=== PATIENT | female | born 1990 | race African-American/Black ===

== ENCOUNTER 2017-05-06 18:21 | Inpatient (IN) | payer MEDICARE, OTHER ==
--- NOTE | ~2017-05-06 | CO ---
Unit #: [id number] #: [id number] Patient: CIRO ISSA [id number] [facility] [address] [place] [address] [id number] MR#: [id number] NAME: CIRO ISSA. ROOM: P211 Age: 27 Sex: F Admission Date: 05/06/2017 : 1990 Attending Physician: Yossi Doll M.D. Primary Care Physician: Primary Care Physician No Consultation Date: 05/13/2017 CONSULTATION REPORT TICO Lange is a 27 year old originally admitted to [facility] on 05/06/2017 with increased aggression and homicidal ideation. At the time of admission, she reported history of bilateral PEs in January 2017. She was admitted on no anticoagulation medications. The patient said that she was followed at [facility]. Per [place] she had not been seen there since 2010, and she was on no current medications. The patient did not tell us at that time that she had been seen at the [facility] with PE. She has been admitted and was started on Xarelto. She tells me that she had been on Xarelto for about 60 days. She did not get the medication refilled and failed to follow up with her doctors. She has not been anticoagulated since March 2017. She denies any chest pain or shortness of breath, and there have been no recorded increased temperature. She had no swelling or pain in any of her limbs. OBJECTIVE GENERAL: Alert, obese. No apparent distress. VITAL SIGNS: Blood pressure 120/80, heart rate 72, respirations 16, and temperature 98.6. Weight: 245, height 5 feet 9 inches. CARDIOVASCULAR: Rate and rhythm regular. CHEST: Lungs clear. EXTREMITIES: No evidence of cyanosis, clubbing, or edema. ASSESSMENT History of bilateral PEs. The patient has been noncompliant with her anticoagulation therapy. PLAN Reinitiate Xarelto 20 mg 1 p.o. q. day, first dose now. She is given a prescription for #30 with 4 refills. She knows to follow up with her PCP. Dictated by... Eulalia Vargas P.A.-C. for Dilcia Brooks/virgen TD: 05/14/2017 12:38 JOB #: [id number] Unit #: [id number] #: [id number] Patient: CIRO ISSA CONSULTATION REPORT Page 1 of 1 X Eulalia Vargas CONSULTATION REPORT
--- NOTE | ~2017-05-06 | PA ---
Unit #: [id number] #: [id number] Patient: NAZARIO ISSA [id number] [facility] [address] [place] [address] [id number] MR#: [id number] NAME: NAZARIO ISSA. ROOM: [facility] Age: 27 Sex: F Admission Date: 05/06/2017 : 1990 Date of Assessment: 05/07/2017 Attending Physician: Yossi Doll M.D. Admitting Physician: Yossi Doll M.D. Primary Care Physician: Primary Care Physician No PSYCHIATRIC ASSESSMENT INFORMANT(S) Patient, reliable. [facility]. CHIEF COMPLAINT Noncompliance with medication. HISTORY OF PRESENT ILLNESS Nazario is a 27-year-old woman, with a history of schizoaffective disorder who reports that she has been off her medications with increasing irritability, and some psychosis with homicidal ideation. She had also been snorting cocaine as a method of "self medicating." She was readmitted for stabilization. PAST PSYCHIATRIC HISTORY The patient was previously a patient of Dr. Green and was admitted in December of this year. Please see his record for further details. FAMILY PSYCHIATRIC HISTORY None reported. SOCIAL HISTORY The patient is currently erratically housed but does have some supportive family. Please see previous dictations for details. PAST MEDICAL HISTORY Significant for obesity. MEDICATIONS None currently. ALLERGIES Benadryl. SUBSTANCE ABUSE HISTORY The patient has a history of dealing cocaine. MENTAL STATUS EXAM The patient presented as a mildly disheveled woman who appeared her stated age. She was cooperative with the examination. Her speech is spontaneous and easily understood. Her musculoskeletal examination was calm. Her mood was irritable with a congruent affect. She was alert and fully oriented and memory and concentration were [id number]. Thought processes Unit #: [id number] #: [id number] Patient: NAZARIO ISSA were goal-directed with no active psychosis. She did report psychosis prior to coming to the hospital and reported ongoing suicidal ideation with vague homicidal ideation. Insight and judgment was fair. Fund of knowledge and abstraction were fair. ASSETS The patient knows local resources and presents voluntarily for treatment. LIABILITIES Include, noncompliance with treatment and recent relapse. ADMITTING DIAGNOSES [place] I: Schizoaffective disorder, F25.0. Cocaine abuse. [place] II: No diagnosis. [place] III: History of obesity. [place] IV: [place] V: PSYCHIATRIC PLAN The patient was admitted and placed on psychosis precautions. Her psychiatric medications will be restarted. Physical examination and laboratory studies will be ordered and reviewed. TREATMENT GOALS Resolution of SI, resolution of HI, improvement in insight, and improvement in coping skills. DISCHARGE PLANNING Follow up with [place]. ESTIMATED LENGTH OF STAY Five days. Dictated by... Yossi Doll M.D. HERBERTH/mioz TD: 05/10/2017 12:04 JOB #: [id number] PSYCHIATRIC ASSESSMENT Page 1 of 1 X Yossi Doll MD X PSYCHIATRIC ASSESSMENT
--- NOTE | ~2017-05-06 | HP ---
Unit #: [id number] #: [id number] Patient: NAZARIO ISSA [id number] [place] [address] [id number] I MR#: [id number] NAME: NAZARIO ISSA. ROOM: P211 Age: 27 Sex: F Admission Date: 05/06/2017 : 1990 Attending Physician: Yossi Doll M.D. Admitting Physician: Yossi Doll M.D. Primary Care Physician: Primary Care Physician No HISTORY AND PHYSICAL HISTORY OF PRESENT ILLNESS Nazario is a 27-year-old female admitted to [address] [place] [address] on 05/06/2017 for irritability and homicidal ideation. She has been off of her medications for the past 3 weeks. PAST MEDICAL HISTORY 1. Obesity. 2. Hypertension. 3. Bilateral PE in January. PAST SURGICAL HISTORY None documented. ALLERGIES Benadryl. SOCIAL HISTORY Smokes 1/2 pack of cigarettes daily. Occasional alcohol use and occasional crack cocaine use. She is currently single and living with her mother. FAMILY HISTORY Noncontributory. REVIEW OF SYSTEMS CONSTITUTIONAL: No fever or chills. HEENT: Denies any sore throat, ear pain or runny nose. CARDIOVASCULAR: Denies chest pain, irregular heart rhythm or palpitations. CHEST: Denies shortness of breath or cough. No hemoptysis. GASTROINTESTINAL: Denies nausea, vomiting, diarrhea or chronic constipation. ENDOCRINE: Denies history of increased thirst or urination. No recent significant weight loss or gain. GENITOURINARY: Denies dysuria, frequency, or hematuria. SKIN: Denies any rashes. HEMATOLOGIC: Denies history of increased bleeding or bruising. MUSCULOSKELETAL: Denies any hot, swollen joints. No generalized muscle pain. NEUROLOGIC: Denies problems with vision or speech. No frequent, severe headaches. No numbness, tingling or weakness in any extremities. Denies loss of bladder or bowel control. CURRENT MEDICATIONS Unit #: [id number] #: [id number] Patient: NAZARIO ISSA None. PHYSICAL EXAMINATION GENERAL: Alert, oriented, in no acute distress. VITAL SIGNS: Blood pressure 144/96, heart rate 79, respirations 20, temperature 98.3. HEIGHT: 5 feet 9. WEIGHT: 245 pounds. SKIN: Warm and dry without rash or lesion. HEENT: Normocephalic. TMs not viewed. Oral and nasal passages clear. Conjunctivae clear. PERRLA. EOMs intact. NECK: Supple without lymphadenopathy or thyromegaly. HEART: Regular rate and rhythm without murmur. LUNGS: Clear. ABDOMEN: Soft, nontender, without masses or hepatosplenomegaly. : Not done. EXTREMITIES: No evidence of cyanosis, clubbing or edema. Moves all without focal deficit. NEUROLOGICAL: Grossly within normal limits. Cranial Nerves: II: Visual galdamez are intact. III, IV AND : Extraocular movements are intact. Pupils are equal, round and reactive to light. V: Facial sensation is grossly normal. VII: Facial movements and expression are normal. VIII: Auditory acuity grossly intact. IX, X: Uvula is midline. Phonation is normal. XI: Patient shrugs shoulders and turns head normally. XII: Tongue protrudes in the midline. Sensory and Motor Function: Sensory and motor sensation is grossly normal. Motor: moves all extremities well. Coordination: Gait is normal. Deep Tendon Reflexes: Intact. IMPRESSION 1. Psychiatric admission. 2. Obesity. 3. Hypertension. 4. Bilateral PE in January. RECOMMENDATIONS PSYCHIATRIC: Per psychiatrist. MEDICAL: No contraindications to participate in facility's activities. MEDICAL PROGNOSIS Good. MEDICAL CONDITION Stable. Dictated by... Manuel Metzger/juliet TD: 05/07/2017 15:39 JOB #: [id number] Unit #: [id number] #: [id number] Patient: NAZARIO ISSA HISTORY AND PHYSICAL Page 1 of 1 X HERO ZAMORA APRN HISTORY AND PHYSICAL
--- NOTE | ~2017-05-06 | DS ---
Unit #: [id number] #: [id number] Patient: CIRO BARRETT [id number] [facility] [address] [place] [address] [id number] I MR#: [id number] NAME: CIRO BARRETT. ROOM: [facility] Age: 27 Sex: F Admission Date: 05/06/2017 : 1990 Discharge Date: 05/14/2017 Attending Physician: Yossi Doll M.D. Primary Care Physician: Primary Care Physician No DISCHARGE SUMMARY REASON FOR ADMISSION Ms. Barrett is a 27-year-old woman with a history of schizoaffective disorder. She reports that she has been off her medications with increasing irritability, some psychosis, and using cocaine as a method of "self medicating." She was unable to contract for safety and admitted for stabilization. LABORATORY DATA Please see hospital chart. HOSPITAL COURSE The patient was admitted and placed on suicide precautions. Seroquel was restarted at a dose of 200 mg, later increased to 300 mg for improved effect. She was generally isolative from peers and staff, but her mood gradually became less irritable, less labile and she had reduction of homicidal and suicidal thoughts. She participated in discharge planning with her social media director, deciding to go to a long-term care facility in [place]. The patient has a history of bilateral pulmonary emboli in 01/2017 and after medical consultation was obtained, she was restarted on the anticoagulant, Xarelto, prior to discharge. On the date of discharge, the patient went to the nurse's station and requested discharge against medical advice, stating that she would "find her own way" to the facility in [place] and thor for safety. Despite the encouragement of staff and nursing, the patient declined to stay until her schedule discharge on Wednesday and was discharged AMA at her request. DISCHARGE DIAGNOSES AXIS I: Schizoaffective disorder, bipolar type; cocaine abuse. AXIS II: No diagnosis. AXIS III: History of obesity, history of pulmonary embolus. AXIS IV: AXIS V: DISCHARGE INSTRUCTIONS Instructed the patient to follow up with the [facility] program in [place] as recommended. DISCHARGE MEDICATIONS No prescriptions were provided due to the AMA nature of her discharge. CONDITION AT DISCHARGE Fair. Unit #: [id number] #: [id number] Patient: PAGE,LAMAIYA A PROGNOSIS Fair. DIET AND ACTIVITY Per primary care doctor. Dictated by... Dilcia Willett/braxton TD: 05/29/2017 01:39 JOB #: [id number] DISCHARGE SUMMARY Page 1 of 1 X Yossi Doll MD X DISCHARGE SUMMARY
--- NOTE | ~2017-05-06 | PN ---
Unit #: [id number] #: [id number] Patient: CIRO ISSA [id number] [facility] [address] [place] [address] [id number] I MR#: [id number] NAME: CIRO ISAS. ROOM: P211 Age: 27 Sex: F Admission Date: 05/06/2017 : 1990 Attending Physician: Yossi Doll M.D. Admitting Physician: Yossi Doll M.D. Primary Care Physician: Primary Care Physician Brianda JAMA PROGRESS NOTES DATE 05/08/2017 DISCUSSION Upon today's assessment, the patient was observed eating in the dining room. She reports that she was okay and asked when her physician would be returning, and I explained to her that he would be back Wednesday. General Appearance: She is casually dressed, mildly disheveled, with fair personal hygiene. She appeared oriented to person, place, time, date, and situation. Her mood was dysthymic with a congruent affect. Her speech was relevant and coherent with a soft tone and slow rate. Her thought processes and content were logical and goal-directed at this time. She denies suicidal or homicidal ideations and denied auditory or visual hallucinations with no overt symptoms of psychosis noted. Memory and intellectual functioning appear grossly intact. Judgment and insight appear fair at this time. She had no complaints with sleep and appetite, and denied suicidal or homicidal ideations. PLAN Continue current medications and monitor q. 15 minutes for safety. Dictated by... CHAPINCITO De Oliveira TD: 05/11/2017 10:45 JOB #: [id number] [facility] PROGRESS NOTES Page 1 of 1 X CHARLES DIALLO PROGRESS NOTE
--- NOTE | ~2017-05-06 | PN ---
Unit #: [id number] #: [id number] Patient: CIRO ISSA [id number] [place] [address] [id number] I MR#: [id number] NAME: CIRO ISSA. ROOM: P211 Age: 27 Sex: F Admission Date: 05/06/2017 : 1990 Attending Physician: Yossi Doll M.D. Admitting Physician: Yossi Doll M.D. Primary Care Physician: Primary Care Physician Brianda BRAVO NOTES DATE May 09, [address] Yossi Doll at [facility] DISCUSSION Upon today's assessment, the patient was found lying in her bed with complaints of a headache. She reports she is "okay" and asked for Brenda, her social science instructor. I informed her that the social workers were off during the weekend and that her social science instructor would be back Wednesday to speak with her at that time. The patient verbalized understanding. At this time her mood still appears dysthymic with a congruent affect, and she currently reports no suicidal or homicidal ideations and verbalizes no plan or intent. She denies auditory or visual hallucinations and no overt symptoms of psychosis was noted. Plan is to continue current medications and to encourage participation in groups and programming. Dictated by... CHAPINCITO De Oliveira TD: 05/11/2017 10:52 JOB #: [id number] [facility] BRAVO NOTES Page 1 of 1 X CHARLES DIALLO PROGRESS NOTE
[~2017-05-06 18:21] MED LIST: FLEXERIL10 MG PO; LORTAB 5/500 TA1 TA1 PO; NAPROXEN PO
[2017-05-10 16:29] LABS: ALBUMIN SERUM 3.8 g/dL (3.5-5.0); ALKALINE PHOSPHATASE 87 U/L (32-92); ALT (SGPT) 10 U/L (10-40); AST (SGOT) 17 U/L (10-42); BILIRUBIN,TOTAL <0.1 mg/dL (0.2-2.0); BLOOD UREA NITROGEN 13 mg/dL (9-23); CARBON DIOXIDE 26 mmol/L (22-31); CHLORIDE 102 mmol/L (100-111); GLOM FILT RATE Estimated 88.2 mL/min (>60); GLUCOSE FASTING 99 mg/dL (70-110); POTASSIUM 4.3 mmol/L (3.5-5.1); SODIUM 135 mmol/L (135-145)
[2017-05-10 16:40] LABS: BASOPHIL# 0.1 X10e3 (0-0.3); BASOPHIL% 0.9 % (0-2.5); EOSINOPHIL# 0.1 X10e3 (0-0.7); EOSINOPHIL% 1.7 % (0.0-7.0); HEMATOCRIT 42.1 % (35.0-45.0); HEMOGLOBIN 12.9 gm/dL (12.0-16.0); LYMPHOCYTE# 3.2 X10e3 (1.0-3.5); LYMPHOCYTE% 47.5 % (17.0-45.0); MEAN CELL VOLUME 85.6 FL (83-96); MEAN CORPUSCULAR HEMOGLOBIN 26.2 PG (28-34); MEAN CORPUSCULAR HGB CONC 30.6 g/dL (30-36); MEAN PLATELET VOLUME 10.1 FL (6.5-11.5); MONOCYTE# 0.6 X10e3 (0-1.0); MONOCYTE% 8.4 % (3.0-12.0); NEUTROPHIL# 2.8 X10e3 (1.5-7.1); NEUTROPHIL% 41.5 % (40-75); PLATELET COUNT 181 X10e3 (140-420); RED BLOOD COUNT 4.92 X10e (3.90-5.30); RED CELL DISTRIBUTION WIDTH 15.2 % (11.0-15.5); WHITE BLOOD COUNT 6.8 X10e3 (4.0-10.5)
[2017-05-10 17:24] LABS: DIFF IND NO
== END 2017-05-14 13:30 | disposition home or self-care (01) | DRG 885 ==
LOC: P1E 20:28 → P2S 23:24
PROVIDERS: Psychiatry & Neurology Psychiatry
DX: F25.9 Schizoaffective disorder, unspecified (principal); Z91.19 Patient's noncompliance with other medical treatment and regimen; F14.10 Cocaine abuse, uncomplicated; E66.9 Obesity, unspecified; F31.9 Bipolar disorder, unspecified; Z68.36 Body mass index [BMI] 36.0-36.9, adult
CPT/HCPCS: 80053; 84703; 85025

== ENCOUNTER 2017-05-14 16:14 | Inpatient (IN) | payer MEDICARE, OTHER ==
--- NOTE | ~2017-05-14 | PA ---
Unit #: [id number] #: [id number] Patient: [facility]RETT [id number] [facility] [address] [place] [address] [id number] I MR#: [id number] NAME: CIRO BARRETT. ROOM: [facility] Age: 27 Sex: F Admission Date: 05/14/2017 : 1990 Date of Assessment: 05/15/2017 Attending Physician: Lotus Baumann M.D. Admitting Physician: Lotus Baumann M.D. Primary Care Physician: Primary Care Physician No PSYCHIATRIC ASSESSMENT DATE OF SERVICE 05/15/2017. HISTORY OF PRESENT ILLNESS Ms. Barrett is a 27-year-old single disabled female, who was just discharged earlier in the day after she has been under the care of Dr. Doll; however, she turned around and came right back into the admission stating that she has been having suicidal thoughts and reports that she has been snorting unknown amount of cocaine on a daily basis for the last 3 months and that she has been off her medications; however, medications were restarted, and she reports that she has been experiencing increasing irritability and has been having homicidal ideations as well as suicidal ideations and then was seen to be very manipulative and not opening up, and was unable to identify any triggers or stressors or any intent or plan, but was refusing to contract for safety and Dr. Doll did not feel like he has anything else to offer and as such case was transferred to [place]. The patient once again on evaluation by me was seen to be very gamey and manipulative and not telling why she is suicidal and why she is back here within a day except that kept on saying that she needs some referal and she some places to be sent to work for. SUBSTANCE ABUSE HISTORY The patient reports history of cocaine abuse and reports that she has been snorting cocaine and cocaine has been her drug of choice. PAST PSYCHIATRIC HISTORY The patient has had a history of inpatient psychiatric hospitalization at [facility] and has been diagnosed and treated for mood disorder. Review of the medical records indicate that she currently has been on Seroquel. PAST MEDICAL HISTORY The patient's medical history is insignificant. ALLERGIES Benadryl. PERSONAL AND SOCIAL HISTORY A 27-year-old female, who reports that she lives at home with her mother and is disabled and has poor social support system. MENTAL STATUS EXAMINATION Young female, who was casually dressed with fair personal Unit #: [id number] #: [id number] Patient: CIRO BARRETT hygiene, appears to be in no acute distress or discomfort. She was awake and alert on interaction with intact orientation. Her mood was anxious and depressed with a congruent affect. Her speech was slow and restricted in content. Her thought processes were disorganized with some looseness of associations and suicidal ideations. Her insight and judgment remain significantly impaired. DIAGNOSTIC IMPRESSION Psychiatric: Bipolar disorder, most recent episode depressed, recurrent, moderate, without psychotic features and cocaine dependence, moderate. Medical: None. Stressors: Moderate psychosocial stressors. TREATMENT PLAN 1. The patient has presented with a history of mood disorder and substance abuse and has been decompensating and will need inpatient hospitalization for safety and stabilization. We will start her back on her home medications. We will adjust the medications and monitor response. 2. Supportive therapy was provided to the patient. 3. Safe, structured, and nourishing environment will be provided. ESTIMATED LENGTH OF STAY 5 to 7 days. ABILITY TO HELP SELF Limited. WILLINGNESS TO HELP SELF The patient appears to be willing to help self. STRENGTHS 1. Communicative. 2. Cooperative. PROBLEMS 1. Chronic dysphoric symptoms. 2. Poor social support system. DISCHARGE CRITERIA This will be contingent upon the patient's ability to show resolution of her depression and anxiety and her ability to stay safe to herself, particularly after discharge from the hospital. Dictated by... Dilcia Feng/braxton TD: 05/15/2017 20:15 JOB #: [id number] Unit #: [id number] #: [id number] Patient: CIRO BARRETT PSYCHIATRIC ASSESSMENT Page 1 of 1 X Lotus Baumann MD PSYCHIATRIC ASSESSMENT
--- NOTE | ~2017-05-14 | PN ---
Unit #: [id number] #: [id number] Patient: CIRO BARRETT [id number] [facility] [address] [place] [address] [id number] I MR#: [id number] NAME: CIRO BARRETT. ROOM: P257 Age: 27 Sex: F Admission Date: 05/14/2017 : 1990 Attending Physician: Lotus Baumann M.D. Admitting Physician: Lotus Baumann M.D. Primary Care Physician: Primary Care Physician Brianda BRAVO NOTES DATE OF SERVICE 05/10/2017 DISCUSSION Ms. Barrett was admitted over the weekend for dysphoria and cocaine use. She says that she is not sleeping much better right now and has a dysphoric and irritable mood. Her affect is congruent with her expressed mood. She is alert and fully oriented. Her memory and concentration are fair. Her thought processes are logical with no active psychosis. ASSESSMENT Bipolar disorder, cocaine abuse. PLAN We will continue with Seroquel and monitor for response. Dictated by... Dilcia Willett/robson TD: 05/15/2017 23:39 JOB #: [id number] [facility] PROGRESS NOTES Page 1 of 1 X Yossi Doll MD PROGRESS NOTE
--- NOTE | ~2017-05-14 | DS ---
Unit #: [id number] #: [id number] [facility]: [facility] [id number] [facility] [address] [place] [address] [id number] I MR#: [id number] NAME: CIRO BARRETT. ROOM: P257 Age: 27 Sex: F Admission Date: 05/14/2017 : 1990 Discharge Date: 05/17/2017 Attending Physician: Lotus Baumann M.D. DISCHARGE SUMMARY IDENTIFYING DATA Ms. Barrett is a 27-year-old single disabled -[place] female, who was just discharged earlier in the day after she has been under care of Dr. Doll, however, she returned on and came right back to the hospital stating having suicidal thoughts. DISCHARGE DIAGNOSES Psychiatric: Bipolar disorder, most recent episode depressed, recurrent, moderate, without psychotic features; cocaine dependence, moderate. Medical: None. Stressors: Moderate psychosocial stressors. HISTORY OF PRESENT ILLNESS Ms. Barrett is a 27-year-old single disabled female, who was just discharged earlier in the day after she has been under the care of Dr. Doll; however, she turned around and came right back into the admission stating that she has been having suicidal thoughts and reports that she has been snorting unknown amount of cocaine on a daily basis for the last 3 months and that she has been off her medications; however, medications were restarted, and she reports that she has been experiencing increasing irritability and has been having homicidal ideations as well as suicidal ideations and then was seen to be very manipulative and not opening up, and was unable to identify any triggers or stressors or any intent or plan, but was refusing to contract for safety and Dr. Doll did not feel like he has anything else to offer and as such case was transferred to [place]. The patient once again on evaluation by me was seen to be very gamey and manipulative and not telling why she is suicidal and why she is back here within a day except that kept on saying that she needs some referal and she some places to be sent to work for. PAST PSYCHIATRIC HISTORY The patient has had a history of inpatient psychiatric hospitalization at [facility] and has been diagnosed and treated for mood disorder. Review of the medical records indicate that she currently has been on Seroquel. PAST MEDICAL HISTORY The patient's medical history is insignificant. HOSPITAL COURSE The patient was admitted to the adult psychiatric unit at [facility] and was oriented to the hospital environment. Routine p.r.n. medications were initiated, and she was started back on her home medications including her Seroquel and was closely monitored. The patient Unit #: [id number] #: [id number] Patient: CIRO BARRETT stated that she was wanting to go to a long-term rehab and, therefore, was wanting to leave the program and was denying any suicidal ideations, intent, or plan and was not seen to be a danger to self or anyone else, and as such, it was decided that she will be discharged home. We will continue with treatment on an outpatient basis. DISCHARGE MEDICATIONS Seroquel 300 mg at bedtime for mood disorder. DISCHARGE CONDITION Stable. PROGNOSIS Fair. Dictated by... Dilcia Feng/braxton TD: 05/17/2017 14:13 JOB #: [id number] DISCHARGE SUMMARY Page 1 of 1 X Lotus Baumann MD X DISCHARGE SUMMARY
--- NOTE | ~2017-05-14 | PN ---
Unit #: [id number] #: [id number] Patient: CIRO BARRETT [id number] [facility] [address] [place] [address] [id number] MR#: [id number] NAME: CIRO BARRETT. ROOM: [facility] Age: 27 Sex: F Admission Date: 05/14/2017 : 1990 Attending Physician: Lotus Baumann M.D. Admitting Physician: Lotus Baumann M.D. Primary Care Physician: Primary Care Physician Brianda BRAVO NOTES DATE May 16, 2017 DISCUSSION Ms. Barrett is a 27-year-old female, who was seen today and chart was reviewed and the case was discussed with the staff. She has been anxious, withdrawn, and seclusive to herself, meanwhile, she has been cooperative with the treatment recommendations and she has been taking the medications and tolerating them fairly well with no reported side effects. MENTAL STATUS EXAMINATION Young female, who was casually dressed with fair personal hygiene and appears to be in no acute distress or discomfort. The patient was awake and alert with impaired attention and concentration. Her mood was anxious with a congruent affect. She denies any suicidal or homicidal ideations. Her insight and judgment remain slightly impaired. TREATMENT PLAN 1. We will continue her on her current medications and treatment protocol, and will monitor her response to the medications, and make further adjustments as needed. 2. We will continue to followup. Dictated by... Dilcia Feng/moiz TD: 05/17/2017 13:26 JOB #: [id number] Unit #: [id number] #: [id number] Patient: CIRO BARRETT [place] PROGRESS NOTES Page 1 of 1 X Lotus Baumann MD PROGRESS NOTE
--- NOTE | ~2017-05-14 | HP ---
Unit #: [id number] #: [id number] Patient: NAZARIO ISSA [id number] [facility] [address] [place] [address] [id number] MR#: [id number] NAME: NAZARIO ISSA. ROOM: P255 Age: 27 Sex: F Admission Date: 05/14/2017 : 1990 Attending Physician: Lotus Baumann M.D. Admitting Physician: Lotus Baumann M.D. Primary Care Physician: Primary Care Physician No HISTORY AND PHYSICAL Nazario is a 27 year old who was discharged less than 3 or 4 hours ago. I believe she walked out our front door, walked up the hill to assessment and was readmitted. The patient was seen and H and P dated 05/07/17 was reviewed. This is current. No changes. Please see H and P dated 05/07/17. Dictated by... Dalton PrattANeal for Dilcia Brooks/juliet TD: 05/14/2017 17:42 JOB #: [id number] HISTORY AND PHYSICAL Page 1 of 1 X Eulalia Vargas HISTORY AND PHYSICAL
== END 2017-05-17 09:10 | disposition home or self-care (01) | DRG 885 ==
LOC: P2L 16:14 → POF 18:10 → P2L 18:16
DX: F31.32 Bipolar disorder, current episode depressed, moderate (principal); F14.20 Cocaine dependence, uncomplicated; R45.851 Suicidal ideations